=== PATIENT | female | born 1955 | race Asian ===

== ENCOUNTER 2024-06-03 20:19 | Emergency (ER) | payer MEDICARE, SELFPAY ==
[2024-06-03 20:21] VITALS: BP 148/102
--- NOTE | 2024-06-03 20:59 | ED.GENMED ---
History of Present Illness
General
Chief Complaint: Insect Sting
Source: patient
Exam Limitations: none
Time Seen by Provider: 06/03/24 20:45
Nursing documentation reviewed up to this point in time: agreed with
History of Present Illness
History of Present Illness:
69-year-old female presenting to the emergency department after multiple bee stings prior to arrival. No issues with swallowing, breathing no abdominal pain nausea or vomiting, no lightheadedness.
Review of Systems
Review of Systems
Allergies reviewed?: Yes
All Other Systems: ROS reviewed and negative except as documented in HPI and ROS
Phy Exam
Physical Exam
Physical Exam:
GENERAL: Alert , in no apparent distress
EYE: pupils equal and reactive
NECK: Supple, no significant adenopathy.
ENT: o/p clr, mmm.
CARDIAC: Regular rate and rhythm .
LUNGS: Clear breath sounds bilaterally, no acute respiratory distress, no wheezes/rales/rhonchi
ABDOMEN: Soft, without focal tenderness, no r/g, no cvat
NEUROLOGICAL: Alert and oriented, no focal neuro deficits
SKIN: Scattered 2 to 3 cm raised wheals upper extremities and lower extremities warm and dry, skin intact.
MUSCULOSKELETAL: No edema, well perfused.
PSYCH: Normal and appropriate interaction.
Course
Orders/Labs/Results
Orders:
Orders
06/03/24 20:59
Diphenhydramine [Benadryl] 25 mg PO NOW STA
Ibuprofen [Motrin] 400 mg PO NOW STA
Vital Signs
Initial and Last Documented VS:
Initial Vital Signs
Temp Pulse Resp BP Pulse Ox
98 F 71 16 148/102 99
06/03/24 20:21 06/03/24 20:21 06/03/24 20:21 06/03/24 20:21 06/03/24 20:21
Last Documented Vital Signs
Temp Pulse Resp BP Pulse Ox
98 F 71 16 148/102 100
06/03/24 20:21 06/03/24 20:21 06/03/24 20:21 06/03/24 20:21 06/03/24 21:01
MDM/Problems Addressed
MDM/Problems Addressed:
69-year-old female presenting to the emergency department today with concerns of multiple bee stings prior to arrival. No evidence of anaphylaxis patient very well-appearing no acute distress was given Benadryl for symptoms as well as Motrin stable
for discharge return precautions given.
*Critical Care Note
Total Time (30-74mins, 75-104mins- exclusive of procedures): Not Applicable
ED Attending Note
-
Portions of this chart may have been created with voice recognition software.� Occasional wrong word or��sound alike� substitutions may have occurred due to the inherent limitations of voice recognition software.
Discharge Plan
Departure
Patient Disposition: Home (Routine Discharge)
Date of Disposition: 06/03/24
Time of Disposition: 20:59
Patient with high blood pressure during this ER visit?: No
Condition: Good
Covid-19: Not Applicable
Discharge Problem:
Bee sting
Instructions: Insect Bites and Stings (DC)
Activity Restrictions/Additional Instructions:
You came to the emergency department today after multiple bee stings. Please use ice to the affected area as well as Benadryl and Motrin for symptoms over the next few days. Return to the emergency department for any worsening, new or concerning
symptoms.
Interventions
Interventions:
*Risk Screen - Suicide Last Done: 06/03/24 20:21
*General Assessment Last Done: 06/03/24 20:21
*Neglect/Abuse Screening Last Done: 06/03/24 20:21
ED- Pulmonary Assessment Last Done: 06/03/24 21:01
ED-Skin Assessment Last Done: 06/03/24 21:01
Discharge Date and Time
Print Language: JAPANESE
[2024-06-03] MEDS: MOTRIN 400 MG PO (21:31)
[2024-06-03] MEDS: BENADRYL 25 MG PO (21:31)
== END 2024-06-03 21:39 | disposition home or self-care (01) ==
LOC: EMR 20:19
PROVIDERS: EMERGENCY PHYSICIAN Emergency Medicine; FAMILY PHYSICIAN Internal Medicine
DX: T63.441A Toxic effect of venom of bees, accidental (unintentional), initial encounter (principal)
CPT/HCPCS: 99282

== ENCOUNTER 2025-08-19 22:33 | Observation (INO) | payer MEDICARE, OTHER, SELFPAY ==
[2025-08-19 16:21] VITALS: BP 157/93
[2025-08-19 16:51] LABS: Hematocrit 38.3 % (37.0-47.0); Hemoglobin 13.1 g/dL (12.0-16.0); Mean Corp Hgb Conc. 34.2 g/dL (33.0-37.0); Mean Corpuscular Volume 93.2 fL (81.0-99.0); Nucleated Red Blood Cells % 0 %; Platelet Count 221 10^3/uL (130-400); Red Cell Dist. Width 12.1 % (11.5-14.5)
[2025-08-19 17:12] LABS: ALT (SGPT) 32 U/L (0-35); AST (SGOT) 29 U/L (14-36); Albumin 4.5 g/dl (3.5-5.0); Alkaline Phosphatase 39 U/L (38-126); Blood Urea Nitrogen 21 mg/dl (7-17); Calcium 10.0 mg/dl (8.4-10.2); Carbon Dioxide 29 mmol/L (22-30); Chloride 104 mmol/L (98-107); Glucose 137 mg/dl (70-99); Potassium 4.2 mmol/L (3.5-5.1); Sodium 137 mmol/L (135-145); Total Protein 7.0 g/dl (6.3-8.2); eGFR > 60.00
[2025-08-19 20:13] VITALS: BP 146/91
--- NOTE | 2025-08-19 20:18 | ED.GENMED ---
History of Present Illness
General
Chief Complaint: Headache
Source: patient and spouse
Exam Limitations: none
Time Seen by Provider: 08/19/25 19:38
Nursing documentation reviewed up to this point in time: agreed with
History of Present Illness
History of Present Illness:
70-year-old female with a past medical history of hypertension, hyperlipidemia who presents to the ER with her for evaluation of dizziness and headaches. Patient reports symptoms have been ongoing for about 3 weeks although they seem to be
waxing and waning in intensity. They seem to be worse in the morning as well as with changes in position or movement of her head. No relieving factors noted. She describes a room spinning sensation that at times is quite intense. Mild associated
nausea. She has had associated headache. She denies any change in her vision or speech, weakness or numbness in her extremities although she has had some paresthesias in fingertips of her hands bilaterally.
Review of Systems
Review of Systems
All Other Systems: ROS reviewed and negative except as documented in HPI and ROS
Constitutional: Denies fever
Respiratory: Denies trouble breathing
Cardiac: Denies chest pain
ABD/GI: Denies abdominal pain or nausea
: Denies flank pain
Musculoskeletal: Denies neck pain or back pain
Neurological: Reports dizzy and headache; Denies weakness or numbness
Phy Exam
Physical Exam
Physical Exam:
General: Awake, alert, oriented x3; no acute distress
Head: Normocephalic, atraumatic
Eyes: Conjunctiva normal, EOMI without reproducible nystagmus, pupils equal round and reactive to light bilaterally; negative Jakub-Hallpike
Throat: Airway intact, handling secretions
Neck: Trachea midline, supple without meningismus
Lungs: Clear to auscultation bilaterally, no wheezing, rales, rhonchi
Heart: Regular rate and rhythm, no murmurs, gallops, or rubs
Neuro: Cranial nerves intact, speech fluent without dysarthria, no limb ataxia, motor and sensory intact in all extremities, ambulatory with a steady gait
Skin: Warm and dry
Extremities: No edema in extremities, equal pulses in all extremities
Scores
NIH Stroke Score
Level of Consciousness: 0 - Alert
LOC Questions: 0-Answers both correctly
LOC Commands: 0-Performs both correctly
Best Horizontal Gaze: 0-Normal
Visual [place]: 0=Normal, no visual loss
Facial Palsy: 0=Normal, symmetrical
Motor - Right Arm: 0=No drift 10 seconds
Motor - Left Arm: 0=No drift 10 seconds
Motor - Right Le-No drift 5 seconds
Motor - Left Le-No drift 5 seconds
Limb Ataxia: 0-Absent
Sensation: 0-Normal
Best Language: 0-No aphasia
Dysarthria: 0-Normal
Extinction and Inattention: 0-No abnormality
NIH Total Score:: 0
Heart Failure Risk
Heart Failure Risk Score: Not Applicable
Heart Score for Chest Pain Patients
STEMI patient?: Not applicable
Withdrawal Assessment of Alcohol
Withdrawal Assessment Completed?: Not applicable
Course
Orders/Labs/Results
Orders:
Orders
08/19/25 16:[address] [CT Head W/o Iv Contrast] Urgent
Comment:
Reason For Exam: pain
08/19/25 16:40
CMP [Comprehensive Metabolic Panel] Urgent
Complete Blood Count/With Diff Urgent
08/19/25 20:18
Electrocardiogram (*1) Urgent
Reason for Study: TIA/Stroke
EKG- Treatment ONCE
08/19/25 20:26
Meclizine [Antivert] 25 mg PO NOW STA
08/19/25 20:40
NEUROLOGY CONSULT Urgent
Consulting Provider: Roge Quiroz
Was physician already notified: Yes
Abnormal Lab Results
08/19/25
16:40
RBC 4.11 L 10^6/uL
(4.20-5.40)
MCH 31.9 H pg
(27.0-31.0)
MPV 10.7 H fL
(7.4-10.4)
BUN 21 H mg/dl
(7-17)
Glucose 137 H mg/dl
(70-99)
08/19/25 16:40
08/19/25 16:40
Vital Signs
Initial and Last Documented VS:
Initial Vital Signs
Temp Pulse Resp BP Pulse Ox
36.8 C 73 16 157/93 99
08/19/25 16:21 08/19/25 16:21 08/19/25 16:21 08/19/25 16:21 08/19/25 16:21
Last Documented Vital Signs
Temp Pulse Resp BP Pulse Ox
36.8 C 60 18 146/91 99
08/19/25 16:21 08/19/25 20:13 08/19/25 20:13 08/19/25 20:13 08/19/25 20:26
MDM/Problems Addressed
Differential Diagnosis Includes:
BPPV, eustachian tube dysfunction, M�ni�re's, labyrinthitis, brain mass, stroke
MDM/Problems Addressed:
70-year-old female presents for evaluation of headache and dizziness x 3 weeks as described above. Hypertensive but otherwise normal vitals. Physical exam is as above. She was sent for lab work in triage which was unremarkable. CT head showed
Chiari I malformation but no other acute abnormalities. Discussed case with neurology�low suspicion that Chiari malformation would account for these new symptoms in a 70-year-old. TIA/CVA consideration especially given negative Jakub-Hallpike and no
reproducible nystagmus with consistent dizziness here. She does have risk factors for stroke. Will plan to treat symptomatically, admit for continued workup to rule out CVA. Discussed with hospitalist.
Acute Exacerbation and/or Progression of Chronic Illness:
Acutely hypertensive
Acute Exacerbation and/or Progression of Chronic Illness: HTN
*Radiology
Radiology exam reviewed: radiology read reviewed
*Pulse Oximetry
SaO2: 99
Oxygen Mode of Delivery: Room air
Patient hypoxic: no (99%)
*EKG
Interpreted by ED Provider?: Yes
Heart Rate: 58
Rate: bradycardiac
Rhythm: sinus
[place]: normal axis
Interval: normal interval
QRS Pattern: normal QRS
Ischemia: no ischemia
*Critical Care Note
Total Time (30-74mins, 75-104mins- exclusive of procedures): Not Applicable
Patient Management
Discussion with other providers: Hospitalist (Discussed with hospitalist) and Container Was[employer] (Discussed with neurologist)
Escalation/DeEscalation of care consider admission/obs:
Admission indicated
ED Attending Note
-
Portions of this chart may have been created with voice recognition software.� Occasional wrong word or��sound alike� substitutions may have occurred due to the inherent limitations of voice recognition software.
Discharge Plan
Departure
Patient Disposition: Admit
Date of Disposition: 08/19/25
Time of Disposition: 20:41
Admit to doctor: Joseph
Presentation/result/management discussed w/ accepting MD/DO: Hospitalist
Discharge Problem:
Dizziness, Headache
Referrals:
Fracisco Maldonado MD [Family Provider, Internal Medicine]
Interventions
Interventions:
*Risk Screen - Suicide Last Done: 08/19/25 16:21
*General Assessment Last Done: 08/19/25 19:25
*Neglect/Abuse Screening Last Done: 08/19/25 16:21
*ED- Fall Risk Assessment Last Done: 08/19/25 19:25
*ED COVID-19 Vaccine History Last Done: 08/19/25 19:25
*ED Influenza Vaccine History Last Done: 08/19/25 19:25
ED- Neurological Assessment Last Done: 08/19/25 19:25
Discharge Date and Time
Print Language: YAKUT
[2025-08-19] MEDS: ANTIVERT 25 MG PO (20:41)
[2025-08-19 21:17] VITALS: BP 148/79
--- NOTE | 2025-08-19 21:34 | HPS.HSE ---
Addendum entered and electronically signed by Lul Ruiz DO 08/19/25 22:51:
Patient seen and examined independently. Agree with findings and plan as set forth by JHONATAN Saldana.
Patient is a 70y F with [facility] significant for hypertension who presents to ED complaining of dizziness and headaches. Patient notes symptoms present for about 3 weeks - worse with changes in head position / movement. Has sense of 'room spinning'.
No fall or injury. No syncopal episodes. No new medications or recent illness.
Ass:
Dizziness / Vertigo
Benign Hypertension
Plan:
Observe overnight for further evaluation.
CTA ordered as per Neurology prior recommendations.
ASA daily for now.
Follow serial neurologic exams.
Supportive care with meclizine PRN, etc.
PT / Vestibular therapy eval in the AM.
+/- MRI depending on CTA results / Neuro recommendations.
Original Note:
Family Physician
-
Family Physician: Fracisco Maldonado
Chief Complaint
-
headaches and dizziness
History of Present Illness
Patient is a 70-year-old female with past medical history significant for hypertension and hyperlipidemia who presented to [facility] ED for evaluation of headaches and dizziness. Patient is primarily Turkmen speaking, language line used for assessment.
Patient reports that she had headaches and dizziness for the past 3 weeks, she states that change in positions and movement of head makes symptoms worse. It is described as waxing and waning in intensity. She denies anything helping with symptoms.
She explains that dizziness is 'room spinning' verse 'lightheadedness.' Patient denies any fever, chills, change in vision, cough, shortness of breath chest pain, nausea, vomiting, constipation or diarrhea.
Medical History
Past Medical History
Past Medical History: Reports Other
Additional Past Medical History:
hypertension
hyperlipidemia
Past Surgical History: Reports None
Social History
Tobacco: Non-smoker
Alcohol: None
Drug: None
Personal:
Living: With Family
Family History
Family History: Not pertinent
Allergies / Home Medications
Allergies reflects when Allergies were last updated in [employer].
Home Medications with original date entered in [employer]
Allergy/Medication List:
Medications on admission are unable to be verified or confirmed at this time.
If medication reconciliation has not been performed, why?: Other (unable to complete med rec, patient unaware of daily medications)
Review of Systems
-
History Source: Patient
Constitutional: Denies Fever or Chills
EENT: Denies Sore Throat
Respiratory: Denies Cough, Hemoptysis or Trouble Breathing
Cardiac: Denies Chest Pain, Diaphoresis, Palpitations or Syncope
Abdomen/GI: Denies Abdominal Pain, Nausea, Vomiting or Diarrhea
: Denies Dysuria, Frequency or Urgency
Musculoskeletal: Denies Joint Pain
Skin: Denies Rash
Neurological: Reports Dizzy and Headache; Denies Weakness or Numbness
Endocrine: Denies Polyuria or Polydipsia
Hematologic/Lymphatic: Denies Bleeding
Physical Exam
Vital Signs
Vital Signs
Temp Pulse Resp BP Pulse Ox
98.2 F 60 18 146/91 99
08/19/25 16:21 08/19/25 20:13 08/19/25 20:13 08/19/25 20:13 08/19/25 20:26
Physical Exam
General: Well Developed, Well Nourished, No Apparent Distress, Comfortable and Conversant
HEENT: NormoCephalic, Moist mucous membranes, PERRLA, Nose Appears Normal and Ears Appear Normal
Respiratory: Clear and Non Labored Respirations
Cardiac: S1/S2 and Regular Rhythm; No Murmur, Rub or Gallop
GI: Soft, Non Tender, Non Distended and Normal Bowel Sounds
Musculoskeletal: No Clubbing, No Cyanosis and No Edema
Skin: IV/Catheter Site
Neuro: Awake and AO x 3
Hematologic/Lymphatic: No Lymphadenopathy
Psych: Calm
Laboratory Results
-
08/19/25 16:40
08/19/25 16:40
Laboratory Results
Total Bilirubin 1.2 mg/dl (0.2-1.3) 08/19/25 16:40
AST 29 U/L (14-36) 08/19/25 16:40
ALT 32 U/L (0-35) 08/19/25 16:40
Alkaline Phosphatase 39 U/L (38-126) 08/19/25 16:40
Data Reviewed
-
CT Scan: Report Reviewed by me (Head: 1. No CT evidence for acute intracranial hemorrhage or transcortical infarct. 2. Mild diffuse cerebral and cerebellar volume loss. 3. Low-lying cerebellar tonsils (or Chiari 1 malformation).)
Medical Tests (Nuc Med, Echo, EKG etc): Report Reviewed by me (EKG: SINUS BRADYCARDIA)
Lab Data: Labs Reviewed by me
Impression/Plan
-
IMPRESSION/PLAN:
#headaches and dizziness 2/2 CVA/TIA vs. vertigo vs. cardiac in nature
labs unremarkable
EKG: SINUS BRADYCARDIA
Head CT: 1. No CT evidence for acute intracranial hemorrhage or transcortical infarct.
2. Mild diffuse cerebral and cerebellar volume loss.
3. Low-lying cerebellar tonsils (or Chiari 1 malformation).
Head CTA: pending
- Admit to telemetry
- Consult Neurology
- Consult PT
- NIH and neuro checks per protocol
#hypertension
#hyperlipidemia
*unable to complete med rec at this time*
Code status: full code
DVT prophylaxis: SCDs
[2025-08-19 22:00] VITALS: BP 120/77
[2025-08-19 23:06] VITALS: BP 102/66
[2025-08-19] MEDS: ASPIRIN 325 MG PO (23:10)
[2025-08-20] VITALS (8 sets, daily range): BP systolic 96–151; BP diastolic 65–95; PULSE 66–77; BMI 25.8
--- NOTE | 2025-08-20 07:48 | W.PN.HOSP.TC ---
Today's Communication/Plan
-
Discharge today
Assessment / Plan
Assessment / Plan
Physical Exam
General: Not in acute distress
HEENT: Normocephalic, Moist mucous membranes
Respiratory: Clear to Auscultation Bilaterally
Cardiac: S1/S2 and Regular Rhythm
GI: Soft, Non Tender, Non Distended and Normal Bowel Sounds
Musculoskeletal: No Cyanosis and No Edema
Skin: Warm. Dry.
Neuro: Awake and AO x 3
Psych: Calm
Assessment/Plan
70-year-old female with past medical history significant for hypertension and hyperlipidemia who presented to [facility] ED for evaluation of headaches and dizziness. Patient is primarily Nepali speaking, language line used for assessment. Patient
reported that she had headaches and dizziness for the 3 weeks prior to presentation, she stated that change in positions and movement of head makes symptoms worse. It is described as waxing and waning in intensity. She denied anything helping with
symptoms. She explained that dizziness is 'room spinning' verse 'lightheadedness.' Patient denied any fever, chills, change in vision, cough, shortness of breath chest pain, nausea, vomiting, constipation or diarrhea.
#Presentation with Dizziness and Vertigo
#Abrupt onset of worsening of dizziness , subacute -- unclear if migraine with aura or benign paroxysmal positional vertigo on left leading to sensation worsening with turning tonight
- MRI unremarkable, CT imaging results noted
- Prochlorperazine was given in the hospital for headache
- Consult Neurology
- Outpatient vestibular therapy
- Continue Aspirin 81 mg daily
- I communicated via [place] Text with neurologist Dr. Quiroz and he confirmed that from neurologist's standpoint, patient is okay for discharge today with outpatient neurology follow-up. Appreciate neurology.
#Hypertension
#Hyperlipidemia
Code status: full code
DVT prophylaxis: SCDs
More than 30 minutes spent in discharge including
Final examination of the patient
Summarizing hospital stay
Instructions for continuing care to all relevant caregivers
Preparation of discharge records, prescriptions, and referral forms
Total time spent (in minutes): 37
Anticipated Discharge: Today
Subjective/Interval History
-
Date of Service: August 20, 2025
Patient was seen and examined. She reported some headache and dizziness. I used the pharmacy technician program director service to speak with the patient.
Objective Data
-
Vital Signs:
Vital Signs
Temp Pulse Resp BP Pulse Ox
98.3 F 62 14 123/79 98
08/20/25 04:00 08/20/25 04:00 08/20/25 04:00 08/20/25 04:00 08/20/25 04:00
--- NOTE | 2025-08-20 09:23 | CON.NEURO4 ---
Addendum entered and electronically signed by Roge Quiroz MD 08/20/25 15:23:
Studies reviewed.
I have personally examined the patient. I reviewed and agree with the HANDWRITING EXPERT's Note.
My addenda:
Awake, alert, interactive. No acute distress.
Speech intact.
Follows 2-step requests w/o difficulty. No tremor.
Extra-ocular movements grossly intact.
Facial movements full and symmetric. Hearing intact to normal conversational volume.
Normal UE movements bilaterally.
Neck: full ROM.
Chest: no dyspnea
Heart: no JVD
Ext: (-) Clubbing, (-) Cyanosis, (-) Edema
IMPRESSIONS/RECOMMENDATIONS:
Abrupt onset of worsening of dizziness , subacute
Unclear if migraine with aura or benign paroxysmal positional vertigo on left leading to sensation worsening with turning tonight
Provide prochlorperazine for presumed headache although the patient does not acknowledge same currently
Consider routine medication for headache prevention
Provide physical therapy as vestibular therapy
Check blood work for potential metabolic causes for symptoms
D/W patient / family
All questions answered.
Will continue to follow peripherally.
Original Note:
Documented by User: Holly Grayson NP 08/20/25 15:09
Consultation - Neurology 4
-
CONSULTING PHYSICIAN: Roge Quiroz MD
REFERRING PHYSICIAN: ER/Dr. Keita
DICTATED BY: JHONATAN Rajput
DATE/TIME OF REQUEST: 08/19/25
DATE/TIME OF CONSULTATION: 08/20/25
Reason for Consultation: Dizziness, headache
History of Present Illness:
This is a 70-year-old female who has presented to the hospital on 08/19/25 with report of dizziness and headaches. [employer] utilized for this interview as patient's primary language is Setswana. Patient reports that about three weeks ago
she started having dizziness and headaches. She reports that the dizziness is a room-spinning sensation that has been constant, but is worse when she turns her head especially to the right side and when she changes position. She notes having a mild
head discomfort associated with the dizziness, intermittent nausea, and photophobia. She notes some right ear discomfort. She denies any vision changes, speech/swallow difficulty, numbness, and weakness. She denies any history of stroke, vertigo, or
events like this in the past and is not taking any blood-thinning medications.
Past Medical History: HTN, HLD
Surgical History: Denies.
Family History: Reviewed and noncontributory.
Social History: No tobacco, alcohol, or illicit drug use.
Allergies: Penicillins.
Home Medications: See below.
Review of Symptoms:
Patient denies any fever, chest pain, shortness of breath, GI or symptoms.
�Per the HPI.�All systems are reviewed negative except above.
Physical Exam:
The patient is afebrile, abdomen is nondistended, breathing is unlabored, skin is warm and dry, no edema.
NIH Stroke Scale:
I performed the NIH stroke scale on the patient on 08/20/25 at 0930. The patient scored 0 points on the NIH stroke scale assessment, which were assigned as follows: See below.
Neurologic Examination:
The patient is awake, alert and oriented x 3. She is able to follow commands and answer questions appropriately. There is no aphasia or dysarthria. On cranial nerve assessment, pupils are 3 mm bilateral, round and reactive to light and
accommodation. Visual barroso are full. There is a left eye 1+ exophoria. Extraocular movements are intact. No nystagmus. Facial sensations are intact and bilaterally symmetrical, there is no facial asymmetry. Hearing is intact bilaterally to normal
conversation volume. Tongue palate and uvula are midline. Sternocleidomastoid strengths are full bilaterally. Motor strengths are 5/5 bilateral upper and lower extremities on medical research [place] scale. There is no drift or involuntary movement
noted. Deep tendon reflexes are 2+ bilateral upper and lower extremities and Babinski is absent bilaterally. There was no extinction noted on double simultaneous stimulation. Coordination is intact by finger to nose bilaterally.
Lab Results: See below.
Neuro Imaging:
1. CT Head 08/19/25: No CT evidence for acute intracranial hemorrhage or transcortical infarct. Mild diffuse cerebral and cerebellar volume loss. Low-lying cerebellar tonsils (or Chiari 1 malformation).
2. 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 Moderate hypoplasia of the proximal intradural segment and extradural segment of the right vertebral artery. Low-lying cerebellar tonsils.
3. MRI Brain 08/20/25: No acute intracranial abnormality noted. Sequelae of mild chronic small vessel ischemic disease.
4. Carotid ultrasound 08/20/25: No significant carotid plaque identified bilaterally. Carotid velocity measurements are consistent with 0-49% internal carotid artery stenosis bilaterally. Vertebral artery flow is antegrade bilaterally.
Differentials for the patient's presentation include:
1. Dizziness; uncertain etiology. MRI brain is negative for stroke. Peripheral vertigo vs vertiginous migraine possible.
2. CT Head is suggestive of a chiari I malformation, noncontributory.
Patient has the following risk factors for their symptoms: None.
IV Tenecteplase/IAT candidacy: Not a candidate due to NIHSS 0, outside of time window.
Recommendations:
-Provide prochlorperazine 10mg IV x1 now for head discomfort.
-Would continue aspirin 81mg daily for now.
-Goal normotension.
-Unable to provide patient with a stroke education packet due to language barrier.
-PT evaluation, vestibular therapy as an outpatient.
Discussed patient care with: Dr. Quiroz, the patient via educational interpreter phone
Vital Signs and Labs
-
Vital Signs and Labs:
Vital Signs
Temp Pulse Resp BP Pulse Ox
97.9 F 66 16 111/68 94
08/20/25 07:30 08/20/25 07:30 08/20/25 07:30 08/20/25 07:30 08/20/25 07:30
Lab Results
08/19/25 16:40
08/19/25 16:40
Sodium 137 mmol/L (135-145) 08/19/25 16:40
Potassium 4.2 mmol/L (3.5-5.1) 08/19/25 16:40
BUN 21 mg/dl (7-17) H 08/19/25 16:40
Glucose 137 mg/dl (70-99) H 08/19/25 16:40
Calcium 10.0 mg/dl (8.4-10.2) 08/19/25 16:40
Medications
-
Active Medications
Generic Name Dose Route Start Last Admin
Trade Name Freq PRN Reason Stop Dose Admin
Acetaminophen 650 mg 08/20/25 08:50
Acetaminophen 325 Mg Tablet PO 09/17/25 08:49
Q6HPRN PRN
mild pain/ fever>100.5F
Aspirin 81 mg 08/20/25 08:00
Aspirin 81 Mg (Enteric Coated) Tablet PO 09/17/25 07:59
DAILY REG
NIH Stroke Score
Subsequent NIH Scale
Date of Subsequent NIH Scale: 08/20/25
Time of Subsequent NIH Scale: 09:30
NIH Stroke Score
Level of Consciousness: 0 - Alert
LOC Questions: 0-Answers both correctly
LOC Commands: 0-Performs both correctly
Best Horizontal Gaze: 0-Normal
Visual Barroso: 0=Normal, no visual loss
Facial Palsy: 0=Normal, symmetrical
Motor - Right Arm: 0=No drift 10 seconds
Motor - Left Arm: 0=No drift 10 seconds
Motor - Right Le-No drift 5 seconds
Motor - Left Le-No drift 5 seconds
Limb Ataxia: 0-Absent
Sensation: 0-Normal
Best Language: 0-No aphasia
Dysarthria: 0-Normal
Extinction and Inattention: 0-No abnormality
NIH Total Score:: 0
Modified Snyder (mRS) Score
Modified Snyder Scale (mRS): No significant disability. Able to carry out usual activities.
Score: 1
Alteplase Contraindication
Inclusion and Exclusion criteria reviewed: Yes

Documented by User: Roge Quiroz MD 08/20/25 15:17
NIH Stroke Score
NIH Stroke Score
NIH Total Score:: 0
Modified Snyder (mRS) Score
Score: 1
[2025-08-20] MEDS: COMPAZINE 10 MG IV (10:21)
[2025-08-20] MEDS: ASPIR LOW (ENTERIC COATED) 81 MG PO (10:22)
[2025-08-20] MEDS: TYLENOL 650 MG PO (10:22)
[2025-08-20 11:19] LABS: Glycohemoglobin (HgbA1c) 5.8 % (4.0-5.6)
[2025-08-20 11:28] LABS: HDL Cholesterol 73 mg/dl; LDL Cholesterol, Calculated 76 mg/dl; Very Low Density Lipoprotein 20 mg/dl (0-30)
--- NOTE | 2025-08-20 11:37 | CM ---
Patient seen bedside w/ spouse, initial assessment completed w/ the use of Language Line. Patient and spouse are Turkmen speaking.
Patient is a 70y F with PMH significant for hypertension who presents to ED complaining of dizziness and headaches.
Patient resides w/ spouse in a 2STH, no steps to enter. Patient is independent w/ ambulation, no device required. Independent w/ ADLs and personal care. Patient has a grab bar in the bathroom for support. Denies SNF/HC hx.
Address, point of contact and insurance verified
PCP: Fracisco Maldonado
Pharmacy: [facility]
Patient admitted under obs services. OOBS verbally reviewed, copy provided, copy on chart
PT eval ordered, will watch for any recommendations
Plan: Home, no needs anticipated.
[2025-08-20 12:00] LABS: Ferritin 130.0 ng/ml (11.1-264.0)
[2025-08-20 12:32] LABS: Folate > 20.0 ng/ml (2.76-20); Vitamin B12 767 pg/ml (239-931)
[2025-08-20 14:20] LABS: C-Reactive Protein < 5.00 mg/L (0.0-10.00)
--- NOTE | 2025-08-20 16:29 | W.DCSUMMARY ---
Discharge Summary
Discharge Data
Date of Admission: 08/19/25
Date of Discharge: 08/20/25
Total time spent discharging patient (in min): 37
-
Pending Results: No
Hospital Course
70 y/o female with past medical history significant for hypertension who presented to [facility] emergency room, complaining of dizziness and headaches, presented for about 3 weeks prior to presentation - worse with changes in head position/movement -
patient had sense of 'room spinning'. Patient denied any fall or injury, syncopal episodes or any new medications or recent illness. Neuroimaging was done as below. Bilateral carotid ultrasound showed no significant stenosis. Neurology was consulted
and they recommended headache medication and vestibular therapy outpatient. Patient wanted to go home and was stable for discharge. Neurology recommended Aspirin 81 mg daily. Patient was stable for discharge.
Discharge Plan
-
Patient Disposition: Home (Routine Discharge)
Discharge Diagnosis/Procedures: #Presentation with Dizziness and Vertigo
#Abrupt onset of worsening of dizziness , subacute -- unclear if migraine with aura or benign paroxysmal positional vertigo on left leading
to sensation worsening with turning tonight
#Hypertension
#Hyperlipidemia

CT Head Results (as per radiologist's report):
'IMPRESSION:
1. No CT evidence for acute intracranial hemorrhage or transcortical infarct.
2. Mild diffuse cerebral and cerebellar volume loss.
3. Low-lying cerebellar tonsils (or Chiari 1 malformation).'

CT Head Angio with and without intravenous contrast (as per radiologist's report):
'IMPRESSION:
1. 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
2. Moderate hypoplasia of the proximal intradural segment and extradural segment of the right vertebral artery.
3. Low-lying cerebellar tonsils.'

MRI Brain (as per radiologist's report):
'IMPRESSION:
No acute intracranial abnormality noted.
Sequelae of mild chronic small vessel ischemic disease.'
Condition: Good
Diet: Low Fat, Low Cholesterol and Low Sodium
Activity: As tolerated
Driving Restrictions: No driving
Instructions: Preventing falls in adults
Referrals:
Fracisco Maldonado MD [Family Provider, Internal Medicine] - in less than 1 week
Referral Note: patient needs outpatient vestibular therapy for dizziness
Prescriptions:
New
aspirin 81 mg Tablet,Delayed Release (Dr/Ec)
81 mg PO DAILY Qty: 30 1RF
Discharge Orders:
Discharge Patient (As Directed); Ordered 08/20/25
Ordered By: Sean Stringer
Discharge Date and Time
Discharge Date/Time: 08/20/25 17:54
Print Language: ALBANIAN
== END 2025-08-20 17:54 | disposition home or self-care (01) ==
LOC: 1 ACUTE 22:33
PROVIDERS: Emergency Medicine; Nurse Practitioner Family; ADMITTING PHYSICIAN Hospitalist; ATTENDING PHYSICIAN Hospitalist; CONSULT PHYSICIAN Psychiatry & Neurology Neurology; EMERGENCY PHYSICIAN Emergency Medicine; FAMILY PHYSICIAN Internal Medicine
DX: R42 Dizziness and giddiness (principal); I10 Essential (primary) hypertension; E78.5 Hyperlipidemia, unspecified; Z79.82 Long term (current) use of aspirin; Z79.899 Other long term (current) drug therapy
CPT/HCPCS: 70450; 70496; 70551; 80053; 80061; 82607; 82728; 82746; 83036; 84443; 85025; 85652; 86140; 93005; 93880; 97112; 97163; 99285; G0378; Q9967

== ENCOUNTER 2025-09-05 06:33 | Outpatient (RCR) | payer MEDICARE, SELFPAY | END 2025-09-05 23:59 | disposition home or self-care (01) | LOC: RPT 06:33 | PROVIDERS: ATTENDING PHYSICIAN Hospitalist; FAMILY PHYSICIAN Internal Medicine | DX: R42 Dizziness and giddiness (principal); Z73.6 Limitation of activities due to disability; R51.9 Headache, unspecified | CPT/HCPCS: 97112; 97163 ==